=== PATIENT | female | born 1955 | race African-American/Black ===

== ENCOUNTER 2023-07-29 06:34 | Day surgery (SDC) | payer MEDICARE, OTHER ==
[~2023-07-29] VITALS: Ht 160 cm; Wt 53.6 kg
[~2023-07-29 06:34] MED LIST: ALBU18HF12 IH; AMLO-257 PO; FAMO20 PO; FLUT12AE3 IH; FLUT16SP NASAL; GABA-1181 PO; MONT-40 PO
[2023-07-29] MEDS ORDERED: SODIUM CHLORIDE 0.9% 1,000 ML ONE (07:21)
[2023-07-29] MEDS ORDERED: FentaNYL CITRATE PF 100 MCG/2 ML VIAL ONE (07:50)
[2023-07-29] MEDS ORDERED: MIDAZOLAM HCL 2 MG/2 ML VIAL ONE (07:50)
[2023-07-29] MEDS: SODIUM CHLORIDE 0.9% 1,000 ML IV ONE (08:29)
[2023-07-29 08:46] VITALS: PULSE 84; RESP 18; O2SAT 100
[2023-07-29] MEDS ORDERED: MethylPREDNISolone SOD SUCC 125 MG/2 ML VIAL ONE (09:25)
[2023-07-29] MEDS: MethylPREDNISolone SOD SUCC 125 MG/2 ML VIAL IVP ONE (09:29)
[2023-07-29] MEDS ORDERED: ALBUTEROL SULFATE 2.5 MG/0.5 ML NEB SOLUTION NEB ONE (12:00)
[2023-07-29] MEDS ORDERED: LIDOCAINE 4% 50 ML SOLUTION ONE (12:00)
[2023-07-29] MEDS ORDERED: LIDOCAINE 2% 11 ML JELLY ONE (12:00)
[2023-07-29] MEDS ORDERED: BENZOCAINE 20% 50 MCG/SPRAY 57 GM ONE (12:00)
== END 2023-07-29 11:25 | disposition home or self-care (01) ==
LOC: SURGERY 06:34
PROVIDERS: ATTEND Internal Medicine Critical Care Medicine
DX: R05.3 Chronic cough (principal); J38.4 Edema of larynx; B37.0 Candidal stomatitis; R06.2 Wheezing; R04.2 Hemoptysis; J98.09 Other diseases of bronchus, not elsewhere classified; J98.8 Other specified respiratory disorders; J84.10 Pulmonary fibrosis, unspecified; R49.0 Dysphonia; R91.8 Other nonspecific abnormal finding of lung field; I70.0 Atherosclerosis of aorta
CPT/HCPCS: 87206; 87101; 87220; 87070; 31623; 31624; 94640; 71045; J3010; J2250; J2919; Q9967; J7030; 87015; J7613; Z7610